=== PATIENT | female | born 1945 | race Caucasian/White ===

== ENCOUNTER → 2019-04-24 | Outpatient (REF) | payer MEDICARE | LOC: M LAB LCGH 12:23 | PROVIDERS: ATTEND Physician Assistant | DX: L82.0 Inflamed seborrheic keratosis (principal) ==

== ENCOUNTER → 2020-07-15 | Outpatient (CLI) | payer MEDICARE, OTHER ==
[~2020-07-15] MED LIST: CARV6.25; CLAR10CA3 PO; D31000TA2 PO; ELIQ5TAB PO; FLON1SPR; HM C500T3 PO; POTA1TAB14 PO; QUIN1TAB3; ROSU5TAB5 PO; SM HTAB3 PO; ZOLO50TA PO
== END ==
LOC: M LABSMTC 10:47
PROVIDERS: ATTEND Anesthesiology
DX: Z01.812 Encounter for preprocedural laboratory examination (principal); Z20.822 Contact with and (suspected) exposure to COVID-19

== ENCOUNTER 2020-07-20 08:02 | Day surgery (SDC) | payer MEDICARE, OTHER ==
[~2020-07-20] VITALS: Ht 157.5 cm; Wt 68.9 kg
[~2020-07-20 08:02] MED LIST changes: +LIDOCAINE 2% 100MG/5ML SDV (FOR ANES.) As Ordered ONE; +NS 1,000 ML IV ONE; +propofoL 200 MG/20 ML VIAL As Ordered ONE
--- NOTE | 2020-07-20 09:26 | ROOR ---
Patient Name: Vanna Moreno Procedure Date: 07/20/2020 9:12 AM Date of : 1945 Age: 75 Room: [facility] Gender: Female Note Status: Finalized Procedure: Upper GI endoscopy Indications: Heme positive stool Providers: Ortiz Vazquez MD Referring MD: Cheli Cintron NP Requesting Provider: Medicines: Monitored Anesthesia Care Complications: No immediate complications. Procedure: Pre-Anesthesia Assessment: - The heart rate, respiratory rate, oxygen saturations, blood pressure, adequacy of pulmonary ventilation, and response to care were monitored throughout the procedure. The Endoscope was introduced through the mouth, and advanced to the second part of duodenum. The upper GI endoscopy was accomplished without difficulty. The patient tolerated the procedure well. Findings: The Z-line was regular and was found 40 cm from the incisors. A small hiatal hernia was present. No other significant abnormalities were identified in a careful examination of the stomach. The exam of the duodenum was otherwise normal. Impression: - Z-line regular, 40 cm from the incisors. - Small hiatal hernia. - No specimens collected. - The examination was otherwise normal. Recommendation: - Patient has a contact number available for emergencies. The signs and symptoms of potential delayed complications were discussed with the patient. Return to normal activities tomorrow. Written discharge instructions were provided to the patient. - High fiber diet. - Discharge patient to home. - Follow an antireflux regimen. - Continue present medications. - Return to referring physician. - The findings and recommendations were discussed with the patient. Procedure Code(s): --- Professional --- 34443, Esophagogastroduodenoscopy, flexible, transoral; diagnostic, including collection of specimen(s) by brushing or washing, when performed (separate procedure) Diagnosis Code(s): --- Professional --- K44.9, Diaphragmatic hernia without obstruction or gangrene R19.5, Other fecal abnormalities CPT copyright 2019 [employer]. All rights reserved. The codes documented in this report are preliminary and upon physical optics teacher review may be revised to meet current compliance requirements. Ortiz Vazquez MD Ortiz Vazquez MD 07/20/2020 9:26:10 AM Electronically signed by Ortiz Vazquez MD Number of Addenda: 0 Note Initiated On: 07/20/2020 9:12 AM Estimated Blood Loss: Estimated blood loss: none.
--- NOTE | 2020-07-20 09:50 | ROOR ---
Patient Name: Vanna Moreno Procedure Date: 07/20/2020 9:13 AM Date of : 1945 Age: 75 Room: [facility] Gender: Female Note Status: Finalized Procedure: Total Colonoscopy to Cecum + Cold Snare Polypectomy + Hemoclips Indications: Heme positive stool Providers: Ortiz Vazquez MD Referring MD: Cheli Cintrno NP Requesting Provider: Medicines: Monitored Anesthesia Care Complications: No immediate complications. Procedure: Pre-Anesthesia Assessment: - The heart rate, respiratory rate, oxygen saturations, blood pressure, adequacy of pulmonary ventilation, and response to care were monitored throughout the procedure. The Colonoscope was introduced through the anus and advanced to the cecum, identified by appendiceal orifice and ileocecal valve. The colonoscopy was performed without difficulty. The patient tolerated the procedure well. The quality of the bowel preparation was good. Findings: The perianal and digital rectal examinations were normal. Non-bleeding internal hemorrhoids were found during retroflexion. The hemorrhoids were small and Grade I (internal hemorrhoids that do not prolapse). Multiple small and large-mouthed diverticula were found in the recto-sigmoid colon, sigmoid colon and descending colon. A small polyp was found at 20 cm proximal to the anus. The polyp was sessile. The polyp was removed with a cold snare. Resection and retrieval were complete. To prevent bleeding after the polypectomy, two hemostatic clips were successfully placed. There was no bleeding at the end of the procedure. One small angioectasia without bleeding was found in the cecum. The exam was otherwise without abnormality on direct and retroflexion views. Impression: - Non-bleeding internal hemorrhoids. - Diverticulosis in the recto-sigmoid colon, in the sigmoid colon and in the descending colon. - One small polyp at 20 cm proximal to the anus, removed with a cold snare. Resected and retrieved. Clips were placed. - One non-bleeding colonic angioectasia. - The examination was otherwise normal on direct and retroflexion views. - The exam was otherwise normal to the cecum. Recommendation: - Patient has a contact number available for emergencies. The signs and symptoms of potential delayed complications were discussed with the patient. Return to normal activities tomorrow. Written discharge instructions were provided to the patient. - High fiber diet. - Discharge patient to home. - Continue present medications. - Await pathology results. - Telephone GI clinic for pathology results in 1 week. - Repeat colonoscopy is not recommended due to current age (66 years or older) for surveillance. - Return to referring physician. - The findings and recommendations were discussed with the patient. Procedure Code(s): --- Professional --- 94612, Colonoscopy, flexible; with removal of tumor(s), polyp(s), or other lesion(s) by snare technique Diagnosis Code(s): --- Professional --- K64.0, First degree hemorrhoids K63.5, Polyp of colon K55.20, Angiodysplasia of colon without hemorrhage R19.5, Other fecal abnormalities K57.30, Diverticulosis of large intestine without perforation or abscess without bleeding CPT copyright 2019 [employer]. All rights reserved. The codes documented in this report are preliminary and upon beef grinder review may be revised to meet current compliance requirements. Ortiz Vazquez MD Ortiz Vazquez MD 07/20/2020 9:50:18 AM Electronically signed by Ortiz Vazquez MD Number of Addenda: 0 Note Initiated On: 07/20/2020 9:13 AM Estimated Blood Loss: Estimated blood loss: none.
== END 2020-07-20 10:20 | disposition home or self-care (01) ==
LOC: M OPP 08:02
PROVIDERS: ATTEND Internal Medicine Gastroenterology
DX: D12.6 Benign neoplasm of colon, unspecified (principal); K55.20 Angiodysplasia of colon without hemorrhage; K57.30 Diverticulosis of large intestine without perforation or abscess without bleeding; K64.0 First degree hemorrhoids; R19.5 Other fecal abnormalities; K44.9 Diaphragmatic hernia without obstruction or gangrene; I48.91 Unspecified atrial fibrillation; Z79.899 Other long term (current) drug therapy; Z88.1 Allergy status to other antibiotic agents; Z91.013 Allergy to seafood

== ENCOUNTER → 2021-03-04 | Outpatient (CLI) | payer MEDICARE, OTHER ==
[~2021-03-04] MED LIST changes: -HM C500T3 PO; +HM C500T4 PO; -LIDOCAINE 2% 100MG/5ML SDV (FOR ANES.) As Ordered ONE; -NS 1,000 ML IV ONE; -propofoL 200 MG/20 ML VIAL As Ordered ONE
--- NOTE | 2021-03-04 12:50 | RADONC.CN ---
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 She is s/p lumpectomy and SLNB with close margins. She is seen today for consideration of adjuvant RT. Diagnosis/Treatment History Oncologic History 10/19/20 Mammogram with 12:00 density 11/03/20 US/diagnostic mammo with suspicious abnormality @ 12:00 12/09/20 Biopsy with ILC ER/OR+ HER2- 12/15/20 MRI with central breast lesion 01/07/21 Biopsy of central left breast lesion negative 02/02/21 Lumpectomy and SLNB (Dr. White @ [facility]) [id number] margins <0.1 cm Breast history: 1st @ 24 Menses @ 14 Menopause @ 51 HRT for 1 year No OCP No IVF Interval History Vanna feels well. Has apprehensions about AI, vis a vis possible joint pains. Currently feels well has no pain or swelling in the left breast or arm. Has full ROM. Appetite good and weight stable. Past Medical History: Anxiety A fib GERD HTN Osteopenia Past Surgical History: Appendectomy Cataracts Tonsillectomy Family History: No family cancer history Social History: 20 pack year former smoker Drinks on occasion Allergies / Meds Allergies: Coded Allergies: ampicillin (Verified Allergy, Intermediate, rash, swelling, 07/15/20) Uncoded Allergies: SOFT SHELL CRABS (Allergy, Severe, facial swelling, 07/15/20) Home Meds Reported Medications Cranberry Fruit Extract (Cranberry) 500 Mg Tablet, 500 MG PO BID, TAB 07/15/20 Multivitamin with Minerals (Hair, Skin and Nails) 1 Each Tablet, 1 TAB PO DAILY, TAB 07/15/20 Cholecalciferol (Vitamin D3) (Vitamin D3) 1,000 Unit Tablet, 5000 UNITS PO DAILY, TAB 07/15/20 Quinapril Hcl (Quinapril HCl) 20 Mg Tablet, QHS 07/15/20 Carvedilol (Carvedilol) 6.25 Mg Tablet, BID 07/15/20 Potassium Chloride (Potassium Chloride) 20 Meq Tablet.er, 20 MEQ PO BID, TAB 07/15/20 Rosuvastatin Calcium (Rosuvastatin Calcium) 5 Mg Tablet, 5 MG PO DAILY, TAB 07/15/20 Apixaban (Eliquis) 5 Mg Tablet, 5 MG PO BID, TAB 07/15/20 Sertraline Hcl (Zoloft) 50 Mg Tablet, 75 MG PO DAILY, TAB 07/15/20 Fluticasone Propionate (Flonase Allergy Relief) 9.9 [facility].susp, 50 MCG NA DAILY, SPR 07/15/20 Loratadine (Claritin) 10 Mg Capsule, 10 MG PO DAILY, CAP 07/15/20 Review of Systems Constitutional: Denies: Fatigue, Weight Loss Eyes: Denies: Pain HEENT: Denies: Head Aches Skin: Denies: Rash Pulmonary: Denies: Dyspnea Cardiovascular: Denies: Chest Pain, Palpitations, Edema Breast: Denies: New Breast Lumps / Masses, Nipple Discharge, Breast Pain or Tenderness Gastrointestinal: Denies: Nausea, Abdominal Pain Hematologic: Denies: Bruising Musculoskeletal: Denies: Neck pain, Back pain Neurological: Denies: Weakness, Numbness Psych: Reports: Mood Normal Vital Signs Wt 163 lbs T 96.3 P 73 RR 18 BP 126/80 O2 99% Pain 0 Fatigue 0 General Exam: Alert, Cooperative, No Acute Distress Eye Exam: PERRLA, EOMI ENT EXAM: Atraumatic, Pharynx Normal Neck Exam: Supple Chest Exam: Clear to auscultation Heart Exam: Rate Normal Breast Exam: Symmetric Bilaterally (Palpable surgical site central breast); Negative: Lumps or Masses, Nipple Retraction, Nipple Discharge, Other Breast Findings Abdomen Exam: Soft Extremity Exam: Negative: Edema Skin Exam: Nl turgor and temperature Neuro Exam: Normal Gait, Normal Speech, Cranial Nerves 3-12 NL Psych Exam: Mental status NL Diagnostic and Laboratory Diagnostic Review Radiologic images, relevant labs and pathology reports were personally reviewed and discussed with Ms. Moreno. Assessment and Plan Impression Ms. Moreno is a 76 year old female with a history of screening mammogram detected left breast ILC [id number] ER/OR+ HER2- Grade 2. She is s/p lumpectomy and SLNB with close margins. She is seen today for consideration of adjuvant RT. Stage Left upper outer breast ILC [id number] ER/OR+ HER2- Grade 2 stage IB Performance Status ECOG 0 Plan We had an extensive discussion with Ms. Moreno regarding the diagnosis at hand and available therapeutic options. She has previously discussed adjuvant RT with Dr. Branham @ [facility] who recommended adjuvant WBI+RNI+ tumor bed boost. I agree with his recommendation given the lobular histology, close margin and involved LN. For treatment as this it was a left-sided cancer, I would use VMAT and DIBH technique to spare heart and lung dose. I will give 56 Gy in 28 fractions with the (tumor bed boost simultaneously delivered) the remaining whole breast will receive 46.8 Gy and the regional nodes a similar dose. We discussed the logistics of receiving radiation therapy in detail including the need for a 1-time planning session. This can occur next week. We reviewed the side effects of treatment including fatigue, skin reaction, fibrosis, rarely late cardiac or lung complications. After discussing the risks, benefits and alternatives to radiation therapy, Ms. Moreno was amenable to pursuing radiotherapy. All questions were answered to the patient's satisfaction. We instructed the patient that if there were any questions,concerns or changes in clinical status in the interim to contact us. Recommendations Adjuvant WBI+SIB+RNI 56 Gy in 28 fractions as described above with VMAT and DIBH Simulation in the coming week Billing Statement Total time of [55] minutes was spent preparing for the visit [3], obtaining HPI [5], examining the patient [5], reviewing diagnostic tests [5], discussing management options [24], coordinating care [4], and writing this note [9]. BHAVANA MIRELES MD Mar 04, 2021 12:50
== END ==
LOC: M ONCR 10:06
PROVIDERS: ATTEND General Practice
DX: C50.912 Malignant neoplasm of unspecified site of left female breast (principal); Z79.899 Other long term (current) drug therapy; Z87.891 Personal history of nicotine dependence; Z88.1 Allergy status to other antibiotic agents

== ENCOUNTER → 2021-04-05 | Outpatient (RCR) | payer MEDICARE, OTHER ==
[~2021-04-05] MED LIST changes: +LIDO2SOL17 PO; +MOME0.1C3 TOP
== END ==
LOC: M ONCR 03-10 07:27
PROVIDERS: ATTEND General Practice
DX: C50.412 Malignant neoplasm of upper-outer quadrant of left female breast (principal); R53.83 Other fatigue

== ENCOUNTER 2021-05-05 10:30 | Outpatient (RCR) | payer MEDICARE, OTHER ==
[~2021-05-05 10:30] MED LIST changes: -MOME0.1C3 TOP
== END 2021-05-06 ==
LOC: M ONCR 10:30
PROVIDERS: ATTEND General Practice
DX: C50.412 Malignant neoplasm of upper-outer quadrant of left female breast (principal)

== ENCOUNTER 2021-05-11 10:24 | Outpatient (RCR) | payer MEDICARE, OTHER ==
[2021-05-13] MEDS ORDERED: MOME0.1C3 TOP (11:50)
== END 2021-06-06 ==
LOC: M ONCR 10:24
PROVIDERS: ATTEND General Practice
DX: C50.412 Malignant neoplasm of upper-outer quadrant of left female breast (principal)

== ENCOUNTER → 2021-11-09 | Outpatient (CLI) | payer MEDICARE, OTHER ==
[~2021-11-09] MED LIST changes: -D31000TA2 PO; +LEVO25TA5 PO; +MOME0.1C3 TOP; +VITA100093 PO
[2021-11-09 11:32] LABS: BASO # 0.1 10^3/uL (0.0-0.2); EOS # 0.3 10^3/uL (0.0-0.5); HEMATOCRIT 39.1 % (36.0-47.0); HEMOGLOBIN 12.6 g/dl (12.0-15.5); LYMPH # 0.7 10^3/uL (1.5-5.0); LYMPH % 13.9 % (24.0-44.0); MEAN CORPUSCULAR HEMOGLOBIN 30.7 pg (27.0-33.0); MEAN CORPUSCULAR HGB CONC 32.2 g/dl (32.0-36.5); MEAN CORPUSCULAR VOLUME 95.1 fl (80.0-96.0); MONO # 0.5 10^3/uL (0.0-0.8); MONO % 8.9 % (2.0-8.0); NEUTROPHILS # 3.6 10^3/uL (1.5-8.5); NEUTROPHILS % 70.8 % (36.0-66.0); PLATELET COUNT, AUTOMATED 283 10^3/uL (150-450); RED BLOOD COUNT 4.11 10^6/uL (4.00-5.40); WHITE BLOOD COUNT 5.1 10^3/uL (4.0-10.0)
[2021-11-09 12:09] LABS: ALBUMIN 3.8 GM/DL (3.2-5.2); ALT/SGPT 44 U/L (12-78); BILIRUBIN,TOTAL 0.4 MG/DL (0.2-1.0); BLOOD UREA NITROGEN 16 MG/DL (7-18); CALCIUM LEVEL 9.5 MG/DL (8.8-10.2); CARBON DIOXIDE LEVEL 28 MEQ/L (21-32); CHLORIDE LEVEL 105 MEQ/L (98-107); CREATININE FOR GFR 0.91 MG/DL (0.55-1.30); GLOMERULAR FILTRATION RATE > 60.0 (>39); GLUCOSE, FASTING 108 MG/DL (70-100); POTASSIUM SERUM 4.4 MEQ/L (3.5-5.1); SODIUM LEVEL 136 MEQ/L (136-145); TOTAL PROTEIN 7.8 GM/DL (6.4-8.2)
[2021-11-09 12:15] LABS: FREE T4 1.03 NG/DL (0.76-1.46); THYROID STIMULATING HORMONE 5.91 uIU/ML (0.358-3.740)
== END ==
LOC: M ONCR 09:09
PROVIDERS: ATTEND General Practice
DX: C50.412 Malignant neoplasm of upper-outer quadrant of left female breast (principal); I89.0 Lymphedema, not elsewhere classified; R53.83 Other fatigue; Z79.01 Long term (current) use of anticoagulants; Z79.899 Other long term (current) drug therapy; Z88.1 Allergy status to other antibiotic agents; Z92.3 Personal history of irradiation; Z87.891 Personal history of nicotine dependence
CPT/HCPCS: 36415; 80053; 84439; 84443; 85025; G0463

== ENCOUNTER → 2022-01-04 | Outpatient (RCR) | payer MEDICARE, OTHER | LOC: M PT 12-20 10:25 | PROVIDERS: ATTEND General Practice | DX: C50.412 Malignant neoplasm of upper-outer quadrant of left female breast (principal) ==

== ENCOUNTER → 2022-02-03 | Outpatient (RCR) | payer MEDICARE, OTHER | LOC: M PT 01-11 09:55 | PROVIDERS: ATTEND General Practice | DX: C50.412 Malignant neoplasm of upper-outer quadrant of left female breast (principal); I89.0 Lymphedema, not elsewhere classified ==

== ENCOUNTER 2022-02-15 10:36 | Outpatient (RCR) | payer MEDICARE, OTHER | END 2022-03-06 | LOC: M PT 10:36 | PROVIDERS: ATTEND General Practice | DX: C50.412 Malignant neoplasm of upper-outer quadrant of left female breast (principal) ==

== ENCOUNTER → 2022-05-11 | Outpatient (CLI) | payer MEDICARE, OTHER | LOC: M ONCR 09:35 | PROVIDERS: ATTEND General Practice | DX: C50.412 Malignant neoplasm of upper-outer quadrant of left female breast (principal); I89.0 Lymphedema, not elsewhere classified; Z79.01 Long term (current) use of anticoagulants; Z79.51 Long term (current) use of inhaled steroids; Z79.899 Other long term (current) drug therapy; Z87.891 Personal history of nicotine dependence; Z88.1 Allergy status to other antibiotic agents; Z91.013 Allergy to seafood; Z90.3 Acquired absence of stomach [part of] ==

== ENCOUNTER 2022-08-28 10:49 | Outpatient (RCR) | payer MEDICARE, OTHER ==
[~2022-08-28 10:49] MED LIST changes: +LIDO15SO PO; -LIDO2SOL17 PO
== END 2022-09-03 ==
LOC: M PT 10:49
PROVIDERS: ATTEND General Practice
DX: I89.0 Lymphedema, not elsewhere classified (principal); C50.412 Malignant neoplasm of upper-outer quadrant of left female breast

== ENCOUNTER → 2023-05-11 | Outpatient (CLI) | payer MEDICARE, OTHER ==
[~2023-05-11] MED LIST changes: +POTA-298 PO; -POTA1TAB14 PO
== END ==
LOC: M ONCR 09:23
PROVIDERS: ATTEND General Practice
DX: C50.912 Malignant neoplasm of unspecified site of left female breast (principal); I89.0 Lymphedema, not elsewhere classified; Z72.0 Tobacco use; Z79.899 Other long term (current) drug therapy; Z88.0 Allergy status to penicillin; Z92.3 Personal history of irradiation

== ENCOUNTER → 2023-09-04 | Outpatient (RCR) | payer MEDICARE, OTHER ==
[~2023-09-04] MED LIST changes: -LIDO15SO PO; +LIDO15SO8 PO
== END ==
LOC: M PT 10:57
PROVIDERS: ATTEND General Practice
DX: I89.0 Lymphedema, not elsewhere classified (principal); C50.412 Malignant neoplasm of upper-outer quadrant of left female breast

== ENCOUNTER → 2023-10-05 | Outpatient (RCR) | payer MEDICARE, OTHER ==
[~2023-10-05] MED LIST changes: +ROSU5TAB40 PO; -ROSU5TAB5 PO
== END ==
LOC: M PT 10:47
PROVIDERS: ATTEND General Practice
DX: I89.0 Lymphedema, not elsewhere classified (principal); C50.412 Malignant neoplasm of upper-outer quadrant of left female breast

== ENCOUNTER 2024-04-21 10:55 | Outpatient (RCR) | payer MEDICARE, OTHER ==
[~2024-04-21 10:55] MED LIST changes: -ROSU5TAB40 PO; +ROSU5TAB49 PO
== END 2024-05-06 ==
LOC: M PT 10:55
PROVIDERS: ATTEND General Practice
DX: C50.412 Malignant neoplasm of upper-outer quadrant of left female breast (principal); I89.0 Lymphedema, not elsewhere classified

== ENCOUNTER → 2024-05-13 | Outpatient (CLI) | payer MEDICARE, OTHER | LOC: M ONCR 14:58 | PROVIDERS: ATTEND General Practice | DX: C50.412 Malignant neoplasm of upper-outer quadrant of left female breast (principal); I89.0 Lymphedema, not elsewhere classified; Z92.3 Personal history of irradiation; Z88.1 Allergy status to other antibiotic agents; Z91.013 Allergy to seafood; Z87.891 Personal history of nicotine dependence; Z79.899 Other long term (current) drug therapy; Z79.51 Long term (current) use of inhaled steroids; Z79.01 Long term (current) use of anticoagulants; Z79.811 Long term (current) use of aromatase inhibitors ==